=== PATIENT | female | born 1950 | race Asian ===

== ENCOUNTER 2018-01-09 10:37 | Emergency (ER) | payer MEDICARE, OTHER ==
[~2018-01-09] VITALS: Ht 157.5 cm; Wt 52.0 kg
[2018-01-09] MEDS ORDERED: ACETAMINOPHEN 325 MG TABLET ONE (12:34)
[2018-01-09 12:49] LABS: BASOPHILS % (AUTO) 0 % (0-1); EOSINOPHILS % (AUTO) 0 % (1-7); LYMPHOCYTES # (AUTO) 0.36 x10^3/uL (1-3.4); LYMPHOCYTES % (AUTO) 5 % (22-44); MD NO; MEAN CORPUSCULAR HEMOGLOBIN 31.7 pg (27.0-34.8); MEAN CORPUSCULAR HGB CONC 33.8 g/dL (32.4-35.8); MEAN CORPUSCULAR VOLUME 93.7 fL (80-100); MEAN PLATELET VOLUME 7.8 fL (7.4-10.4); MONOCYTES # (AUTO) 0.16 x10^3/uL (0.2-0.8); MONOCYTES % (AUTO) 2 % (2-9); NEUTROPHILS % (AUTO) 93 % (42-75); PLATELET COUNT 211 x10^3/uL (130-400); RED BLOOD COUNT 4.74 x10^6/uL (3.82-5.3); RED CELL DISTRIBUTION WIDTH 13.4 % (9.6-15.2)
[2018-01-09] MEDS ORDERED: SODIUM CHLORIDE 0.9% 1,000ML IVBOLUS ONE (13:00)
[2018-01-09] MEDS ORDERED: ACETAMINOPHEN 325 MG TABLET PO ONE (13:00)
[2018-01-09 13:01] LABS: ANION GAP 10 mmol/L (5-15); CALCIUM 9.5 mg/dL (8.5-10.1); CHLORIDE 108 mmol/L (98-107)
[2018-01-09 13:05] LABS: ALANINE AMINOTRANSFERASE 32 U/L (12-78); ALKALINE PHOSPHATASE 97 U/L (45-117); BILIRUBIN,TOTAL 0.8 mg/dL (0.2-1.0); TOTAL PROTEIN 8.2 g/dL (6.4-8.2)
[2018-01-09 13:54] VITALS: BP 112/62
[2018-01-09 14:12] LABS: MICROSCOPIC NOT IND
[2018-01-09 14:16] LABS: CULTURE INDICATED? NO
== END 2018-01-09 14:06 | disposition home or self-care (01) ==
LOC: ED 14:00
DX: K52.89 Other specified noninfective gastroenteritis and colitis (principal)
CPT/HCPCS: 36415; 80053; 81003; 83690; 85025; 93005; 96360; 99285; J7030

== ENCOUNTER → 2018-07-02 | Outpatient (CLI) | payer MEDICARE, OTHER ==
[~2018-07-02] MED LIST: ASPI-496 PO; BIOT25005 PO; CALC1CAP8 PO; CART1TAB4 PO; CETI-158 PO; CHOL200074 PO; CYAN50008 PO; Cinsulin PO; DOCU100T6 PO; ESTR42.53 VG; FEXO-64 PO; KRIL1CAP22 PO; MULT-224 PO; PLAN450C PO; PSYL0.5215 PO; VENTOLIN IH; [UNRECOGNIZED DRUG - OTHER] TD
[2018-07-02 11:07] LABS: ANION GAP 5 mmol/L (5-15); CALCIUM 8.4 mg/dL (8.5-10.1); CHLORIDE 111 mmol/L (98-107)
[2018-07-02 11:12] LABS: BASOPHILS # (AUTO) 0.04 x10^3/uL (0-0.1); BASOPHILS % (AUTO) 1 % (0-1); EOSINOPHILS # (AUTO) 0.17 x10^3/uL (0-0.4); EOSINOPHILS % (AUTO) 3 % (1-7); LYMPHOCYTES # (AUTO) 3.21 x10^3/uL (1-3.4); LYMPHOCYTES % (AUTO) 48 % (22-44); MD NO; MEAN CORPUSCULAR HEMOGLOBIN 32.6 pg (27.0-34.8); MEAN PLATELET VOLUME 7.9 fL (7.4-10.4); MONOCYTES # (AUTO) 0.63 x10^3/uL (0.2-0.8); MONOCYTES % (AUTO) 10 % (2-9); NEUTROPHILS # (AUTO) 2.61 x10^3/uL (1.8-6.8); NEUTROPHILS % (AUTO) 39 % (42-75); PLATELET COUNT 235 x10^3/uL (130-400); RED BLOOD COUNT 4.53 x10^6/uL (3.82-5.3); RED CELL DISTRIBUTION WIDTH 13.8 % (9.6-15.2)
== END | disposition home or self-care (01) ==
LOC: STAR 09:37
PROVIDERS: ATTEND Obstetrics & Gynecology Female Pelvic Medicine and Reconstructive Surgery
DX: Z01.818 Encounter for other preprocedural examination (principal)
CPT/HCPCS: 36415; 71046; 80048; 85025; 93005

== ENCOUNTER 2018-07-08 05:18 | Day surgery (SDC) | payer MEDICARE, OTHER ==
[2018-07-02 11:21] VITALS: BP 116/77
[~2018-07-08] VITALS: Ht 160 cm; Wt 52.1 kg
[~2018-07-08 05:18] MED LIST changes: -VENTOLIN IH
[2018-07-08] MEDS ORDERED: LACTATED RINGERS 1,000 ML IV SCH ×2 (06:03→10:09)
[2018-07-08 06:07] VITALS: BP 116/77
[2018-07-08] MEDS ORDERED: VENTOLIN IH (06:23)
[2018-07-08] MEDS ORDERED: LIDOCAINE-MPF 1%, 2ML INFIL ONE (06:30)
[2018-07-08] MEDS ORDERED: THROMBIN 20,000 UNIT VIAL TP ONE (06:44)
[2018-07-08] MEDS ORDERED: INDIGO CARMINE 0.8%, 5ML ONE (06:44)
[2018-07-08] MEDS ORDERED: BUPIVACAINE/PF-EPI 0.5% 1:200K ONE (06:44)
[2018-07-08] MEDS ORDERED: NEOMY/POLYMYXIN B GU IRR. 1 ML IRRIG ONE (06:45)
[2018-07-08] MEDS ORDERED: BUPIVACAINE/PF-EPI 0.25% 1:200K ONE (07:19)
[2018-07-08] MEDS ORDERED: LIDOCAINE JELLY 2%, 30GM ONE (07:25)
[2018-07-08] MEDS ORDERED: MIDAZOLAM 1 MG/ML, 2ML ONE (07:26)
[2018-07-08] MEDS ORDERED: FENTANYL PF 250 MCG/5ML ONE (07:26)
[2018-07-08] MEDS ORDERED: ACETAMINOPHEN 500 MG TABLET PO ONE (07:30)
[2018-07-08] MEDS ORDERED: ONDANSETRON ODT 8 MG PO ONE (07:30)
[2018-07-08] MEDS ORDERED: LIDOCAINE-MPF 2% ,5ML ONE (08:28)
[2018-07-08] MEDS ORDERED: MEPERIDINE/PF 25MG/0.5ML IVPush PRN (08:30)
[2018-07-08] MEDS ORDERED: ONDANSETRON 2MG/ML, 2ML IV PRN (08:30)
[2018-07-08] MEDS ORDERED: HYDROmorphone 1 MG/ML, 1ML IV PRN (08:30)
[2018-07-08] MEDS ORDERED: PROMETHAZINE 12.5 MG SUPP PR PRN (08:30)
[2018-07-08] MEDS ORDERED: MIDAZOLAM 1 MG/ML, 2ML IV PRN (08:30)
[2018-07-08] MEDS ORDERED: LABETALOL 5MG/ML, 20ML IV PRN (08:30)
[2018-07-08] MEDS ORDERED: OXYcodone 5 MG/5 ML ORAL.SOL UDC PO PRN (08:30)
[2018-07-08] MEDS ORDERED: ALBUTEROL/IPRATROPIUM 2.5MG/0.5MG, 3 ML NPPB PRN (08:30)
[2018-07-08] MEDS ORDERED: SCOPOLAMINE PATCH, 1.5MG PATCH.TD72 TD PRN (08:30)
[2018-07-08] MEDS ORDERED: KETOROLAC 30 MG/1 ML ONE (08:45)
[2018-07-08] MEDS ORDERED: DEXAMETHASONE 4 MG/ML, 1ML ONE (08:46)
[2018-07-08] MEDS ORDERED: CEFAZOLIN 1,000 MG ONE (08:46)
[2018-07-08] MEDS ORDERED: ROCURONIUM 10MG/ML,5ML ONE (08:46)
[2018-07-08] MEDS ORDERED: SUCCINYLCHOLINE 20 MG/ML, 10ML ONE (08:46)
[2018-07-08] MEDS ORDERED: PROPOFOL 10 MG/ML, 20ML ONE (08:46)
[2018-07-08] MEDS ORDERED: NEOSTIGMINE 1 MG/ML, 10ML ONE (08:46)
[2018-07-08] MEDS ORDERED: GLYCOPYRROLATE 0.2MG/1ML, 5ML ONE (08:46)
[2018-07-08] MEDS ORDERED: HYDROmorphone 2 MG/ML, 1ML ONE (10:02)
[2018-07-08] MEDS ORDERED: OXYcodone 5 MG/5 ML ORAL.SOL UDC ONE (10:02)
[2018-07-08] MEDS ORDERED: FENTANYL PF 100 MCG/2ML ONE (10:22)
[2018-07-08] MEDS: FENTANYL PF 100 MCG/2ML IV PRN ×2 (10:26→10:35)
[2018-07-08] MEDS ORDERED: ONDANSETRON 2MG/ML, 2ML IVPush PRN (10:30)
[2018-07-08] MEDS ORDERED: PROMETHAZINE 12.5 MG SUPP PR ONE (10:30)
[2018-07-08] MEDS ORDERED: IBUPROFEN 600 MG TABLET PO PRN (10:30)
[2018-07-08] MEDS ORDERED: HYDROcodone/APAP 5/325 TABLET PO PRN (10:30)
== END 2018-07-08 18:51 | disposition home or self-care (01) ==
LOC: OUT 05:18
PROVIDERS: ATTEND Obstetrics & Gynecology Female Pelvic Medicine and Reconstructive Surgery
DX: D25.0 Submucous leiomyoma of uterus (principal); N81.4 Uterovaginal prolapse, unspecified; N39.46 Mixed incontinence; K21.9 Gastro-esophageal reflux disease without esophagitis; Z98.890 Other specified postprocedural states; Z88.6 Allergy status to analgesic agent
CPT/HCPCS: 57288; 57425; 58542; 88305; C1771; C1781; J0330; J0690; J1100; J1170; J1885; J2250; J2704; J2710; J3010; J3490; J7120

== ENCOUNTER 2020-12-17 09:23 | Outpatient (CLI) | payer MEDICARE, OTHER ==
[~2020-12-17 09:23] MED LIST changes: -MULT-224 PO; +MULT-642 PO; +VENTOLIN IH
== END 2020-12-17 23:59 | disposition home or self-care (01) ==
LOC: CFH 09:23
PROVIDERS: ATTEND Internal Medicine
DX: M85.88 Other specified disorders of bone density and structure, other site (principal); M81.0 Age-related osteoporosis without current pathological fracture; R92.2 Inconclusive mammogram
CPT/HCPCS: 76641; 77080